=== PATIENT | female | born 1995 | race African-American/Black ===

== ENCOUNTER 2021-01-04 00:10 | Emergency (ER) | payer OTHER, SELFPAY ==
[2021-01-04 01:38] LABS: Urine Blood Negative (Negative); Urine Glucose Negative (Negative); Urine Protein 1+ (Negative); Urine Specific Gravity 1.025 (1.005-1.030)
[2021-01-04] MEDS ORDERED: ALBUTEROL 2.5 MG/3 ML NEB SOL ONE (02:13)
[2021-01-04] MEDS ORDERED: METHYLPREDNISOLONE 125 MG INJ ONE (02:13)
[2021-01-04] MEDS ORDERED: IPRATROPIUM BROM 0.5MG/2.5ML ONE (02:13)
[2021-01-04 03:03] LABS: Absolute Lymphocytes (CBC) 3.3 K/uL (0.7-4.9); Basophils % 0.7 % (0-1.3); Hematocrit 37.9 % (36.0-45.0); Lymphocytes % 27.8 % (15.3-44.8); MPV 9.9 fL (7.6-11.3); RBC Red Blood Cell Count 4.89 M/uL (3.86-4.86)
[2021-01-04 03:06] LABS: Protime INR 0.93
[2021-01-04 03:32] LABS: ALT/SGPT 19 U/L (12-78); Albumin 4.1 g/dL (3.4-5.0); Alkaline Phosphatase 42 U/L (45-117); BUN Blood Urea Nitrogen 8 mg/dL (7-18); Bicarbonate 23 mmol/L (21-32); Bilirubin Direct 0.1 mg/dL (0-0.2); Bilirubin Total 0.5 mg/dL (0.2-1.0); Creatine Phosphokinase 86 U/L (26-192); Glucose Level 89 mg/dL (74-106); Lipase 74 U/L (73-393); NT PRO-BNP 37 pg/mL (<125); Protein, Total 8.3 g/dL (6.4-8.2); Sodium Level 138 mmol/L (136-145); Troponin (Emerg Dept Use Only) < 0.02 ng/mL (0.0-0.045)
[2021-01-04 03:33] LABS: AST/SGOT 19 U/L (15-37); CKMB Creatine Kinase MB < 1.0 ng/mL (1.0-3.6); Potassium 3.8 mmol/L (3.5-5.1)
[2021-01-04 03:57] LABS: Urine Specific Gravity/Preg 1.025 (1.005-1.030)
--- NOTE | 2021-01-04 04:19 | EDPHYS ---
Physician Documentation [facility] Name: Jaquelin Garcia Age: 25 yrs Sex: Female : 1995 Arrival Date: 01/04/2021 Time: 00:14 Bed 13 Private MD: ED Physician Dino Noel HPI: 01/04 01:03 This 25 yrs old Black Female presents to ER via Ambulatory with complaints of Breathing mh7 Difficulty. 01:03 The patient has shortness of breath at rest, with light activity. Onset: The mh7 symptoms/episode began/occurred today, at 00:00. Duration: The symptoms are continuous, and are unchanged since they started. The patient's shortness of breath is aggravated by exertion, light activity, is alleviated by nothing. Associated signs and symptoms: Pertinent positives: Wheezing, Pertinent negatives: chest pain, non-productive cough, productive cough, diaphoresis, dizziness, fever, hemoptysis, loss of consciousness, nausea, numbness in extremities, visual changes, vomiting. Severity of symptoms: At their worst the symptoms were mild today, in the emergency department the symptoms are unchanged. Patient states that she is 6 weeks . She states that she started having some difficulty breathing while at work today. She has had some wheezing. She denies any fever, chest pain, abdominal pain, nausea, vomiting, diarrhea, vaginal bleeding, dizziness, numbness/tingling, or weakness.. 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 - Social history:: Smoking status: Patient denies any tobacco usage or history of. ROS: 01:03 Constitutional: Negative for fever, chills, and weight loss, Eyes: Negative for injury, mh7 pain, redness, and discharge, ENT: Negative for injury, pain, and discharge, Neck: Negative for injury, pain, and swelling, Cardiovascular: Negative for chest pain, palpitations, and edema. 01:03 Abdomen/GI: Negative for abdominal pain, nausea, vomiting, diarrhea, and constipation, Back: Negative for injury and pain, : Negative for injury, bleeding, discharge, and swelling, MS/Extremity: Negative for injury and deformity, Skin: Negative for injury, rash, and discoloration, Neuro: Negative for headache, weakness, numbness, tingling, and seizure, Psych: Negative for depression, anxiety, suicide ideation, homicidal ideation, and hallucinations, Allergy/Immunology: Negative for hives, rash, and allergies, Endocrine: Negative for neck swelling, polydipsia, polyuria, polyphagia, and marked weight changes, Hematologic/Lymphatic: Negative for swollen nodes, abnormal bleeding, and unusual bruising. 01:03 Respiratory: Negative for cough, hemoptysis, orthopnea, pleurisy, sputum production. Exam: 01:03 Constitutional: This is a well developed, well nourished patient who is awake, alert, mh7 and in no acute distress. Head/Face: Normocephalic, atraumatic. Eyes: Pupils equal round and reactive to light, extra-ocular motions intact. Lids and lashes normal. Conjunctiva and sclera are non-icteric and not injected. Cornea within normal limits. Periorbital areas with no swelling, redness, or edema. Neck: Trachea midline, no thyromegaly or masses palpated, and no cervical lymphadenopathy. Supple, full range of motion without nuchal rigidity, or vertebral point tenderness. No Meningismus. Chest/axilla: Normal chest wall appearance and motion. Nontender with no deformity. No lesions are appreciated. Cardiovascular: Regular rate and rhythm with a normal S1 and S2. No gallops, murmurs, or rubs. Normal PMI, no JVD. No pulse deficits. 01:03 Abdomen/GI: Soft, non-tender, with normal bowel sounds. No distension or tympany. No guarding or rebound. No evidence of tenderness throughout. Back: No spinal tenderness. No costovertebral tenderness. Full range of motion. Skin: Warm, dry with normal turgor. Normal color with no rashes, no lesions, and no evidence of cellulitis. MS/ Extremity: Pulses equal, no cyanosis. Neurovascular intact. Full, normal range of motion. Neuro: Awake and alert, GCS 15, oriented to person, place, time, and situation. Cranial nerves II-XII grossly intact. Motor strength 5/5 in all extremities. Sensory grossly intact. Cerebellar exam normal. Normal gait. Psych: Awake, alert, with orientation to person, place and time. Behavior, mood, and affect are within normal limits. 01:03 Respiratory: the patient does not display signs of respiratory distress, Respirations: prolonged exhalation, that is mild, Breath sounds: wheezing: expiratory that is mild, is scattered, Respiratory rate: 20 Vital Signs: 00:28 BP 114 / 64; Pulse 81; Resp 22 S; Temp 98.5(O); Pulse Ox 97% ; Weight 63.5 kg (R); bb Height 5 ft. 2 in. (157.48 cm) (R); Pain 0/10; 01:30 BP 110 / 64; Pulse 71; Resp 17; Pulse Ox 100% ; Pain 0/10; dc2 02:30 BP 110 / 65; Pulse 73; Resp 16; Pulse Ox 100% on R/A; Pain 0/10; dc2 04:15 BP 104 / 61; Pulse 75; Resp 16; Temp 97.5; Pulse Ox 100% ; Pain 0/10; dc2 00:28 Body Mass Index 25.61 (63.50 kg, 157.48 cm) bb MDM: 04:10 Differential diagnosis: Anemia Anxiety Reaction asthma, Bronchitis pneumonia, mh7 Pneumothorax Psychogenic pulmonary edema, Pulmonary Embolism reactive airway disease. Data reviewed: vital signs, nurses notes, lab test result(s), Beta HCG: cardiac enzymes, CBC, electrolytes, urinalysis, UPT: positive EKG, radiologic studies, plain films. Data interpreted: Pulse oximetry: on room air is 100 %. Interpretation: normal. Counseling: I had a detailed discussion with the patient and/or guardian regarding: the historical points, exam findings, and any diagnostic results supporting the discharge/admit diagnosis, lab results, radiology results. Refusal of service: The patient/guardian displays adequate decision making capability and despite a detailed discussion of alternatives, benefits, risks, and consequences refuses: CT Scan. ED course: Well-appearing, no acute distress, vital signs stable, no focal neurological deficits. No chest pain, shortness of breath, nausea, vomiting, abdominal pain. Lungs clear to auscultation bilaterally, good air movement, no retractions. Discussed test results and findings with the patient and recommended CT angio of the chest to rule out PE given risk factor of , but patient refused CT.. 04:10 ED course: Patient request discharge from the ED at this time.. [facility] 04:18 Patient medically screened. [facility] 01/04 00:59 Order name: BMP [facility] 01/04 00:59 Order name: Blood Culture Adult (2) [facility] 01/04 00:59 Order name: CBC with Diff [facility] 01/04 00:59 Order name: CPK [facility] 01/04 00:59 Order name: Ckmb [facility] 01/04 00:59 Order name: Hepatic Function; Complete Time: 03:45 [facility] 01/04 00:59 Order name: Lipase; Complete Time: 03:45 [facility] 01/04 00:59 Order name: Magnesium; Complete Time: 03:45 [facility] 01/04 00:59 Order name: NT PRO-BNP; Complete Time: 03:45 [facility] 01/04 00:59 Order name: PT-INR; Complete Time: 03:11 [facility] 01/04 00:59 Order name: Ptt, Activated; Complete Time: 03:11 [facility] 01/04 00:59 Order name: Troponin (emerg Dept Use Only); Complete Time: 03:45 [facility] 01/04 00:59 Order name: Basic Metabolic Panel; Complete Time: 03:45 [facility] 01/04 01:00 Order name: Blood Culture [facility] 01/04 00:59 Order name: EKG; Complete Time: 01:00 [facility] 01/04 01:00 Order name: CBC with Automated Diff; Complete Time: 03:11 [facility] 01/04 01:00 Order name: Creatine Phosphokinase; Complete Time: 03:45 [facility] 01/04 01:00 Order name: CKMB Creatine Kinase MB; Complete Time: 03:45 [facility] 01/04 01:01 Order name: HCG-Quantitative; Complete Time: 03:45 [facility] 01/04 01:01 Order name: Influenza Screen (a \T\ B); Complete Time: 03:11 [facility] 01/04 01:02 Order name: Chest Single View XRAY [facility] 01/04 01:38 Order name: Urine Dipstick-Ancillary; Complete Time: 02:06 [facility] 01/04 02:18 Order name: SARS-COV-2 RT PCR; Complete Time: 03:18 [facility] 01/04 03:55 Order name: Urine --Ancillary (enter results); Complete Time: 04:09 [facility]3 01/04 00:59 Order name: Cardiac monitoring; Complete Time: 01:40 7 01/04 00:59 Order name: EKG - Nurse/Tech; Complete Time: 01:39 [facility] 01/04 00:59 Order name: IV Saline Lock [facility] 01/04 00:59 Order name: Labs collected and sent [facility] 01/04 00:59 Order name: O2 Per Protocol; Complete Time: 01:40 [facility] 01/04 00:59 Order name: O2 Sat Monitoring; Complete Time: 01:40 [facility] 01/04 01:07 Order name: Urine Dipstick-Ancillary (obtain specimen); Complete Time: 02:50 [facility] Administered Medications: 04:24 Discontinued: NS 0.9% 1000 ml IV at 1000 ml once dc2 01:51 Drug: Albuterol 2.5 mg Route: Inhalation; dc2 02:20 Follow up: Response: Wheezing diminished dc2 01:51 Drug: AtroVENT (ipratropium) Aerosol 0.5 mg Route: Inhalation; dc2 02:20 Follow up: Response: Wheezing diminished dc2 02:30 Drug: SOLU-Medrol (methylPrednisoLONE) 125 mg Route: IVP; Site: right antecubital; dc2 02:51 Follow up: Response: No adverse reaction dc2 04:16 Drug: NS 0.9% 1000 ml Route: IV; Rate: 1000 ml; Site: right antecubital; dc2 Disposition Summary: 01/04/21 04:21 Left Against Medical Advice Location: Home(01/04/21 04:21) [facility] Problem: new(01/04/21 04:21) [facility] Symptoms: have improved(01/04/21 04:21) [facility] Condition: Stable(01/04/21 04:21) [facility] Diagnosis - Dyspnea(01/04/21 04:21) [facility] - Influenza B [facility] - Asthma [facility] Followup: [facility] - With: Private Physician - When: 1 - 2 days - Reason: Worsening of condition, Recheck today's complaints, Continuance of care, Re-evaluation by your physician Followup: [facility] - With: Torres Ardon MD - When: 1 - 2 days - Reason: Worsening of condition, Recheck today's complaints Discharge Instructions: - Discharge Summary Sheet mh7 - Shortness of Breath, Adult, Egqe-ni-Lezd mh7 - First Trimester of , Pmrc-nh-Ifnb mh7 - Asthma, Adult, Mlcp-xz-Tkky 7 - Influenza, Adult, Ljwk-wb-Byqo 7 Forms: - Work release form dc2 Prescriptions: - albuterol sulfate 90 mcg/actuation Inhalation HFA aerosol inhaler - inhale 2 puff by INHALATION route every 6 hours As needed; 1 Inhaler; Refills: mh7 0, Product Selection Permitted - Prednisone 20 mg Oral Tablet - take 2 tablets by ORAL route once daily for 5 days; 10 tablet; Refills: 0, 7 Product Selection Permitted - Tamiflu 75 mg Oral Capsule - take 1 tablet by ORAL route every 12 hours for 5 days; 10 tablet; Refills: 0, 7 Product Selection Permitted Signatures: Dispatcher [employer] EDInessa Wolfe RN RN bb Holmes, Maurice, MD MD 7 SamsonDaniella RN RN dc2 Corrections: (The following items were deleted from the chart) 00:31 00:30 PMHx: Toothache; alfredo fuentes 02:18 01:02 CORONAVIRUS+MR.LAB.BRZ ordered. EDMS EDMS 04:18 03:51 Chest For PE Angio+CT.RAD.BRZ ordered. EDMS EDMS 04:20 04:18 Home mh7 mh7 04:20 04:18 new 7 mh7 04:20 04:18 have improved mh7 mh7 04:20 04:18 Stable mh7 mh7 04:20 04:18 Influenza B mh7 mh7 04:20 04:18 Dyspnea mh7 mh7 04:20 04:18 Asthma mh7 mh7
--- NOTE | 2021-01-04 04:19 | ER ---
Nurse's Notes [facility] Name: Jaquelin Garcia Age: 25 yrs Sex: Female : 1995 Arrival Date: 01/04/2021 Time: 00:14 Bed 13 Private MD: Diagnosis: Dyspnea;Influenza B;Asthma Presentation: 01/04 00:28 Chief complaint: Patient states: she was at work tonight and started to have difficulty bb breathing she had asthma in the past but it has been years ago. Coronavirus screen: difficulty breathing, Client presents with at least one sign or symptom that may indicate coronavirus-19. Standard/surgical mask placed on the client. Ebola Screen: No symptoms or risks identified at this time. Initial Sepsis Screen: Does the patient meet any 2 criteria? No. Patient's initial sepsis screen is negative. Does the patient have a suspected source of infection? No. Patient's initial sepsis screen is negative. Risk Assessment: Do you want to hurt yourself or someone else? Patient reports no desire to harm self or others. Onset of symptoms was January 04, 2021. 00:28 Method Of Arrival: Ambulatory bb 00:28 Acuity: HATTIE 3 bb Triage Assessment: 00:30 General: Appears in no apparent distress. Behavior is calm, cooperative. Pain: Denies bb pain. Neuro: Level of Consciousness is awake, alert, obeys commands, Oriented to person, place, time, situation. Cardiovascular: Capillary refill < 3 seconds Patient's skin is warm and dry. Respiratory: Reports shortness of breath Breath sounds with wheezes Onset: The symptoms/episode began/occurred today, the patient has mild shortness of breath. 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 - Social history:: Smoking status: Patient denies any tobacco usage or history of. Screenin:30 Abuse screen: Denies threats or abuse. Denies injuries from another. Nutritional dc2 screening: No deficits noted. Tuberculosis screening: No symptoms or risk factors identified. Never had TB. Fall Risk None identified. No fall in past 12 months (0 pts). No secondary diagnosis (0 pts). No IV (0 pts). Ambulatory Aid- None/Bed Rest/Nurse Assist (0 pts). Gait- Normal/Bed Rest/Wheelchair (0 pts) Mental Status- Oriented to own ability (0 pts). Total Perez Fall Scale indicates No Risk (0-24 pts). Assessment: 00:40 General: Appears in no apparent distress. talking on phone . dc2 00:40 Pain: Denies pain. Neuro: No deficits noted. Level of Consciousness is awake, alert, dc2 obeys commands, Oriented to person, place, time, situation, Moves all extremities. Cardiovascular: Reports shortness of breath, Heart tones present. Respiratory: Reports shortness of breath Airway is patent Breath sounds are clear bilaterally. Onset: The symptoms/episode began/occurred just prior to arrival. GI: No deficits noted. No signs and/or symptoms were reported involving the gastrointestinal system. : No deficits noted. No signs and/or symptoms were reported regarding the genitourinary system. Derm: No deficits noted. No signs and/or symptoms reported regarding the dermatologic system. Musculoskeletal: No deficits noted. No signs and/or symptoms reported regarding the musculoskeletal system. 00:40 Respiratory: Respiratory effort is even, unlabored, shallow, Breath sounds with wheezes dc2 in expiratory wheezes and diminished at bilateral bases. 00:40 Cardiovascular: Rhythm is sinus rhythm. dc2 04:03 Reassessment: Kaelyn from CT at bedside for consent for PE study. dc2 04:06 Reassessment: Pt refuse PE study, will notify Provider. dc2 Vital Signs: 00:28 BP 114 / 64; Pulse 81; Resp 22 S; Temp 98.5(O); Pulse Ox 97% ; Weight 63.5 kg (R); bb Height 5 ft. 2 in. (157.48 cm) (R); Pain 0/10; 01:30 BP 110 / 64; Pulse 71; Resp 17; Pulse Ox 100% ; Pain 0/10; dc2 02:30 BP 110 / 65; Pulse 73; Resp 16; Pulse Ox 100% on R/A; Pain 0/10; dc2 04:15 BP 104 / 61; Pulse 75; Resp 16; Temp 97.5; Pulse Ox 100% ; Pain 0/10; dc2 00:28 Body Mass Index 25.61 (63.50 kg, 157.48 cm) ED Course: 00:14 Patient arrived in ED. 00:30 Triage completed. bb 00:30 Arm band placed on Patient placed in an exam room, on a stretcher, on pulse oximetry. bb 00:37 Dino Noel MD is Attending Physician. mh7 00:40 Patient has correct armband on for positive identification. Placed in gown. Bed in low dc2 position. Call light in reach. Side rails up X 1. threat monitoring analyst on. Pulse ox on. NIBP on. Door closed. Lights dimmed. 01:24 Daniella Davies RN is Primary Nurse. dc2 01:40 CKMB Creatine Kinase MB Sent. dc2 01:40 Influenza Screen (a \T\ B) Sent. dc2 01:57 Chest Single View XRAY In Process Unspecified. EDMS 02:30 Inserted saline lock: 20 gauge in right antecubital area, using aseptic technique. oe Blood collected. 02:46 No provider procedures requiring assistance completed. dc2 04:20 Torres Ardon MD is Referral Physician. mh7 04:20 IV discontinued, intact, bleeding controlled, No redness/swelling at site. Pressure dc2 dressing applied. Administered Medications: 04:24 Discontinued: NS 0.9% 1000 ml IV at 1000 ml once dc2 01:51 Drug: Albuterol 2.5 mg Route: Inhalation; dc2 02:20 Follow up: Response: Wheezing diminished dc2 01:51 Drug: AtroVENT (ipratropium) Aerosol 0.5 mg Route: Inhalation; dc2 02:20 Follow up: Response: Wheezing diminished dc2 02:30 Drug: SOLU-Medrol (methylPrednisoLONE) 125 mg Route: IVP; Site: right antecubital; dc2 02:51 Follow up: Response: No adverse reaction dc2 04:16 Drug: NS 0.9% 1000 ml Route: IV; Rate: 1000 ml; Site: right antecubital; dc2 Outcome: 04:18 Discharge ordered by . mh7 04:34 Condition: stable dc2 04:34 Discharge instructions given to Instructed on discharge instructions, follow up and referral plans. Demonstrated understanding of instructions, follow-up care, medications, Prescriptions given X 3. 04:35 AMA Left before signing form. dc2 04:35 Patient left the ED. dc2 Signatures: Dispatcher [employer] EDInessa Wolfe, RN RN Dwgiht Carrasco Maurice, MD MD mh7 Nahomi Garcia Daniella Davies RN RN dc2 Corrections: (The following items were deleted from the chart) 00:31 00:30 PMHx: Toothache; alfredo fuentes 02:18 01:40 CORONAVIRUS+MR.BONILLA.RAYMOND drawn and sent. dc2 EDMI 02:45 00:40 Neuro: No deficits noted. Level of Consciousness is awake, alert, obeys commands, dc2 Oriented to person, place, time, situation, Moves all extremities. dc2
[2021-01-04] MEDS ORDERED: NA CHLORIDE 0.9% 1,000 ML ONE (04:44)
[2021-01-04 04:47] VITALS: O2SAT 100
[2021-01-04 04:50] VITALS: BP 104/61; TEMP 97.5
--- NOTE | 2021-01-04 07:44 | EKG ---
Test Date: 2021-01-04 Test Time: 01:35:09 Water Quality Specialist: ACE MEASUREMENT RESULTS: Intervals: Rate: 71 SC: 166 QRSD: 90 QT: 368 QTc: 399 Tofte: P: 45 SC: 166 QRS: 49 T: 25 INTERPRETIVE STATEMENTS: Normal sinus rhythm Nonspecific T wave abnormality Abnormal ECG No previous ECG available for comparison Electronically Signed On 01-04-21 07:44:06 CDT by Vinnie Paez
--- NOTE | 2021-01-04 13:06 | RAD REPORT ---
EXAM DESCRIPTION: RAD - Chest Single View - 01/04/2021 1:57 am CLINICAL HISTORY: 25 years Female, DYSPNEA COMPARISON: None. FINDINGS: Cardiomediastinal silhouette is normal. No focal consolidation, pneumothorax or pleural effusion. Osseous structures are unremarkable. IMPRESSION: No acute findings. Electronically signed by: Jack Buitrago MD 01/04/2021 2:22 AM CDT Due to temporary technical issues with the PACS/Fluency reporting system, reports are being signed by the in house radiologists without review as a courtesy to insure prompt reporting. The interpreting radiologist is fully responsible for the content of the report.
== END 2021-01-04 04:35 | disposition left against medical advice (07) ==
LOC: ER 00:10
DX: O99.511 Diseases of the respiratory system complicating pregnancy, first trimester (principal); J10.1 Influenza due to other identified influenza virus with other respiratory manifestations; J45.909 Unspecified asthma, uncomplicated; Z3A.01 Less than 8 weeks gestation of pregnancy; Z20.822 Contact with and (suspected) exposure to COVID-19
CPT/HCPCS: 93005; 87040 ×2; 85025; 80048; 36415; 83735; 82550; 81025; 85610; 80076; 85730; 84702; 81003; 84484; 82553; 83690; 83880; 87804 ×2; 71045; 96374; 99285; U0003; J7030; J2930